=== PATIENT | male | born 1955 | race Caucasian/White ===

== ENCOUNTER 2017-03-12 09:25 | Emergency (ER) | payer OTHER ==
[2017-03-12 09:37] VITALS: BP 164/112
--- NOTE | 2017-03-12 10:16 | ED Physician Documentation ---
PD HPI LOWER EXT INJURY - Stated complaint Stated Complaint: R FOOT INJ - Chief complaint Chief Complaint: Ext Problem - History obtained from History obtained from: Patient - History of Present Illness PD HPI LOW EXT INJURY LOCATION: Right, Foot Type of injury: Twist Timing - onset: How many days ago (2) Timing - duration: Days (2) Timing - details: Gradual onset, Still present Worsened by: Moving, Palpating Associated symptoms: Swelling, Discolored (mild redness today). No: Weakness, Numbness Similar symptoms before: Has not had sx before Recently seen: Not recently seen Review of Systems Constitutional: denies: Fever Skin: denies: Abrasion (s), Laceration (s) Musculoskeletal: reports: Extremity swelling (dorsum right foot) PD PAST MEDICAL HISTORY - Past Medical History Past Medical History: Yes Cardiovascular: Other Respiratory: None Neuro: None Endocrine/Autoimmune: None GI: None : None HEENT: None Psych: None Musculoskeletal: None Derm: None - Past Surgical History Past Surgical History: No - Present Medications Home Medications: Ambulatory Orders Medication Instructions Recorded Confirmed Dexamethasone [Decadron] 4 mg PO DAILY #5 tablet 03/12/17 HYDROcod/ACETAM 5/325 [[place] 5/325] 1 tab PO Q6H PRN #15 tablet 03/12/17 Naproxen 375 mg PO BID #20 tablet 03/12/17 - Allergies Allergies/Adverse Reactions: Allergies Allergy/AdvReac Type Severity Reaction Status Date / Time sulfamethoxazole Allergy Unknown Verified 03/12/17 09:38 [From ] trimethoprim [From ] Allergy Unknown Verified 03/12/17 09:38 - Social History Does the pt smoke?: No Smoking Status: Never smoker Does the pt drink ETOH?: Yes Does the pt have substance abuse?: No - Immunizations Immunizations are current?: Yes - POLST Patient has POLST: No PD ED PE NORMAL - Vitals Vital signs reviewed: Yes - General General: Alert and oriented X 3, No acute distress, Well developed/nourished - Back Back: No CVA TTP, No spinal TTP - Derm Derm: Warm and dry. No: Normal color (mild redness with tenderness dorsum right foot. Toes okay. ) - Neuro Neuro: No motor deficit, No sensory deficit Results - Vitals Vitals: Vital Signs - 24 hr 10/19/17 09:34 Temperature 36.8 C Heart Rate 94 Respiratory 18 Rate Blood Pressure 164/112 H O2 Saturation 97 Oxygen O2 Source Room air - Rads (name of study) foot Radiology: Prelim report reviewed (no fractures) PD MEDICAL DECISION MAKING - ED course Complexity details: reviewed results, considered differential (sprain or bruising, but given some redness and pain developing after mild injury, consider first gout or tendonitis response. ), d/w patient Departure - Departure Disposition: 01 Home, Self Care Clinical Impression: Tendonitis Foot sprain Qualifiers: Encounter type: initial encounter Laterality: right Qualified Code(s): S93.601A - Unspecified sprain of right foot, initial encounter Condition: Stable Record reviewed to determine appropriate education?: Yes Instructions: ED Sprain Foot Prescriptions: Dexamethasone [Decadron] 4 mg PO DAILY #5 tablet HYDROcod/ACETAM 5/325 [[place] 5/325] 1 tab PO Q6H PRN #15 tablet PRN Reason: Pain Naproxen 375 mg PO BID #20 tablet Comments: Regular medications. This looks to be some inflammation from either sprain or developing some tendinitis. It possibly could be gout type episode. Naproxen twice daily and Decadron can also be used as an anti-inflammatory. These would both both be useful for tendinitis or gout type inflammation. Add Tylenol or hydrocodone if needed for pain. Firm soled shoe to help with comfort. Recheck if not improved over the next 3-5 days. Discharge Date/Time: 03/12/17 12:17
[2017-03-12] MEDS ORDERED: NAPROXEN 250 MG TABLET PO STA (10:43)
[2017-03-12] MEDS ORDERED: DEXAMETHASONE 10 MG/ML VIAL PO STA (10:43)
[2017-03-12] MEDS ORDERED: NAPROXEN 250 MG TABLET PO ONE (10:54)
[2017-03-12] MEDS ORDERED: DEXAMETHASONE 10 MG/ML VIAL ONE (10:54)
[2017-03-12] MEDS ORDERED: CHERRY SYRUP 10 ML UDC PO ONE (10:55)
--- NOTE | 2017-03-12 16:18 | XRAY Preliminary Report ---
Exam: XR FOOT 3 VIEW RT IMPRESSION: No evidence of fracture or dislocation. [facility] SITE ID: [id number]
--- NOTE | 2017-03-12 16:20 | XRAY Report ---
EXAM: RIGHT FOOT RADIOGRAPHY EXAM DATE: 03/12/2017 11:13 AM. CLINICAL HISTORY: Dorsal foot pain, injury 2 days ago. COMPARISON: None. TECHNIQUE: 3 views. FINDINGS: Bones: No fracture or focal bony lesion. Joints: No evidence of dislocation. Soft Tissues: No unexpected soft tissue findings. IMPRESSION: No evidence of fracture or dislocation. [facility] Referring Provider Line: [phone] SITE ID: [id number]
== END 2017-03-12 12:17 | disposition home or self-care (01) ==
LOC: ED 09:25
DX: S93.601A Unspecified sprain of right foot, initial encounter (principal); X50.0XXA Overexertion from strenuous movement or load, initial encounter; M77.51 Other enthesopathy of right foot and ankle
CPT/HCPCS: 73630; 99283; A9270